=== PATIENT | female | born 1970 | race Caucasian/White ===

== ENCOUNTER 2017-07-28 12:37 | Observation (INO) | payer BC, OTHER ==
--- NOTE | 2017-07-28 13:00 | ER Document Report ---
ED Medical Screen (RME) - General Chief Complaint: Abdominal Pain Stated Complaint: ABDOMINAL PAIN Time Seen by Provider: 07/28/17 12:58 Mode of Arrival: Ambulatory Information source: Patient TRAVEL OUTSIDE OF THE [place] IN LAST 30 DAYS: No - HPI Patient complains to provider of: abd pain Onset: This morning - pt with onset of RLQ abd pain earlier this am - Related Data Allergies/Adverse Reactions: Sulfa (Sulfonamide Antibiotics) Adverse Reaction (Intermediate, Verified 12:41) Nausea Physical Exam - Vital signs Vitals: Temp Pulse Resp BP Pulse Ox 99.2 F 95 18 133/77 H 99 07/28/17 12:49 07/28/17 12:49 07/28/17 12:49 07/28/17 12:49 07/28/17 12:49 Course - Vital Signs Vital signs: Temp Pulse Resp BP Pulse Ox 99.2 F 95 18 133/77 H 99 07/28/17 12:49 07/28/17 12:49 07/28/17 12:49 07/28/17 12:49 07/28/17 12:49
[2017-07-28 13:38] LABS: ABSOLUTE LYMPHOCYTES (AUTO) 1.7 10^3/uL (0.5-4.7); ABSOLUTE MONOCYTES (AUTO) 1.7 10^3/uL (0.1-1.4); ABSOLUTE NEUT (AUTO) 16.1 10^3/uL (1.7-8.2); BASOPHILS % (AUTO) 0.1 % (0-2); HEMATOCRIT 41.4 % (36.0-47.0); HEMOGLOBIN 13.9 g/dL (12.0-15.5); LYMPHOCYTES % (AUTO) 8.7 % (13-45); MEAN CORPUSCULAR HEMOGLOBIN 29.4 pg (27.0-33.4); MEAN CORPUSCULAR HGB CONC 33.5 g/dL (32.0-36.0); MEAN CORPUSCULAR VOLUME 88 fl (80-97); MONOCYTES % (AUTO) 8.5 % (3-13); PLATELET COUNT 400 10^3/uL (150-450); RED BLOOD COUNT 4.71 10^6/uL (3.72-5.28); SEGMENTED NEUTROPHILS % (AUTO) 82.7 % (42-78); TOTAL CELLS COUNTED % (AUTO) 100 %; WHITE BLOOD COUNT 19.4 10^3/uL (4.0-10.5)
[2017-07-28 13:52] LABS: APPEARANCE,URINE CLEAR; BILIRUBIN,URINE NEGATIVE (NEGATIVE); COLOR,URINE YELLOW; GLUCOSE, URINE NEGATIVE (NEGATIVE); KETONES,URINE NEGATIVE (NEGATIVE); LEUKOCYTE ESTERASE,URINE NEGATIVE (NEGATIVE); NITRITE,URINE NEGATIVE (NEGATIVE); PROTEIN,URINE NEGATIVE (NEGATIVE); URINE SPECIFIC GRAVITY 1.023; UROBILINOGEN,URINE NEGATIVE mg/dL (<2.0)
--- NOTE | 2017-07-28 14:10 | RADIOLOGY REPORT (SQ) ---
EXAM DESCRIPTION: CT ABD/PELVIS WITH IV ONLY COMPLETED DATE/TIME: 07/28/2017 1:39 pm REASON FOR STUDY: RLQ pain COMPARISON: None. TECHNIQUE: CT scan of the abdomen and pelvis performed using helical scanning technique with dynamic intravenous contrast injection. No oral contrast. Images reviewed with lung, soft tissue, and bone windows. Reconstructed coronal and sagittal MPR images reviewed. Delayed images for evaluation of the urinary system also acquired. All images stored on PACS. All CT scanners at this facility use dose modulation, iterative reconstruction, and/or weight based d osing when appropriate to reduce radiation dose to as low as reasonably achievable (ALARA). [facility]: Dose Right [facility]: CareDose [facility]: Dose Right [facility]: Teradose 4D [facility]: WiFast CONTRAST TYPE AND DOSE: contrast/concentration: Isovue 370.00 mg/ml; Total Contrast Delivered: 69.0 ml; Total Saline Delivered: 65.0 ml RENAL FUNCTION: None required. The patient is less than 50 years old. RADIATION DOSE: CT Rad equipment meets quality standard of care and radiation dose reduction techniq ues were employed. CTDIvol: 5.0 - 5.8 mGy. DLP: 558 mGy-cm.. LIMITATIONS: None. FINDINGS: LOWER CHEST: 2 mm pulmonary nodule right lower lobe of doubtful clinical significance. Chanelle ng bases otherwise clear. LIVER: Normal size. No masses. No dilated ducts. SPLEEN: Normal size. No focal lesions. PANCREAS: No masses. No significant calcifications. No adjacent inflammation or peripancreatic fluid collections. Pancreatic duct not dilated. GALLBLADDER: No identified stones by CT criteria. No inflammatory changes to suggest cholecystitis. ADRENAL GLANDS: No significant masses or asymmetry. RIGHT KIDNEY AND URETER: No solid masses. No significant calcifications. No hydronephrosis or hyd roureter. LEFT KIDNEY AND URETER: No solid masses. No significant calcifications. No hydronephrosis or hydr oureter. AORTA AND VESSELS: No aneurysm. No dissection. Renal arteries, SMA, celiac without stenosis. RETROPERITONEUM: No retroperitoneal adenopathy, hemorrhage or masses. BOWEL AND PERITONEAL CAVITY: No masses or inflammatory changes. No free fluid or peritoneal masses. APPENDIX: Fluid distended appendix measuring 10 mm with fecalith at its base and mild surrounding inf lammation compatible with acute appendicitis. No abscess or free air. PELVIS: No mass. No free fluid. Normal bladder. ABDOMINAL WALL: No masses. Tiny fat containing periumbilical hernia. BONES: No significant or acute findings. OTHER: No other significant finding. IMPRESSION: ACUTE APPENDICITIS IN THE SETTING OF FECALITH. TECHNICAL DOCUMENTATION: JOB ID: [id number] Quality ID # [id number]: Final reports with documentation of one or more dose reduction techniques (e.g., Au tomated exposure control, adjustment of the mA and/or kV according to patient size, use of iterative reconstruction technique) 2010 [employer]- All Rights Reserved Reading location - IP/workstation name: [email or web address]
[2017-07-28 14:20] LABS: ALANINE AMINOTRANSFERASE 30 U/L (9-52); ALBUMIN 4.7 g/dL (3.5-5.0); ALKALINE PHOSPHATASE 69 U/L (38-126); ANION GAP 12 (5-19); ASPARTATE AMINO TRANSFERASE 15 U/L (14-36); BILIRUBIN,DIRECT 0.1 mg/dL (0.0-0.4); BILIRUBIN,TOTAL 0.5 mg/dL (0.2-1.3); BLOOD UREA NITROGEN 11 mg/dL (7-20); CALCIUM 9.9 mg/dL (8.4-10.2); CARBON DIOXIDE 26 mmol/L (22-30); CHLORIDE 100 mmol/L (98-107); GLUCOSE 116 mg/dL (75-110); SODIUM 137.6 mmol/L (137-145); TOTAL PROTEIN 7.4 g/dL (6.3-8.2)
[2017-07-28] MEDS ORDERED: ONDANSETRON HCL INJ/PF 4 MG/2 ML SDV IV ONE (14:31)
[2017-07-28] MEDS ORDERED: ERTAPENEM SODIUM INJ 1 GM VIAL IV ONE (14:31)
[2017-07-28] MEDS ORDERED: HYDROMORPHONE HCL INJ/PF 2 MG/ML AMPULE IV ONE (14:31)
[2017-07-28] MEDS ORDERED: NORMAL SALINE 1000 ML 1,000 ML IV ONE (14:32)
--- NOTE | 2017-07-28 14:43 | ER Document Report ---
ED General - General Chief Complaint: Abdominal Pain Stated Complaint: ABDOMINAL PAIN Time Seen by Provider: 07/28/17 12:58 Mode of Arrival: Ambulatory Notes: 39-year-old female with no medical problems presents with 8 hours of right lower quadrant pain radiating from the epigastric/umbilical area worsening throughout the day with anorexia and nausea. Patient was evaluated in triage. She had labs showing leukocytosis, and before I evaluated her she had a CT that shows acute appendicitis. TRAVEL OUTSIDE OF THE [place] IN LAST 30 DAYS: No - Related Data Allergies/Adverse Reactions: Sulfa (Sulfonamide Antibiotics) Adverse Reaction (Intermediate, Verified 13:00) Nausea Past Medical History - General Information source: Patient - Social History Smoking Status: Never Smoker Chew tobacco use (# tins/day): No Frequency of alcohol use: None Drug Abuse: None Family History: None Patient has suicidal ideation: No Patient has homicidal ideation: No Renal/ Medical History: Denies: Hx Peritoneal Dialysis Review of Systems - Review of Systems Notes: REVIEW OF SYSTEMS GEN: Denies fever, chills, weight loss ENT: Denies sore throat, nasal discharge, ear pain EYES: Denies blurry vision, eye pain, discharge CV: Denies chest pain, palpitations, edema RESP: Denies cough, shortness of breath, wheezing GI: Pain anorexia MSK: Denies joint pain/swelling, edema, SKIN: Denies rash, skin lesions LYMPH: Denies swollen glands/lymph nodes NEURO: Denies headache, focal weakness or numbness, dizziness PSYCH: Denies depression, suicidal or homicidal ideation PHYSICAL EXAMINATION General: No acute distress, well-nourished Head: Atraumatic, normocephalic ENT: Mouth normal, oropharynx moist, no exudates or tonsillar enlargement Eyes: Conjunctiva normal, pupils equal, lids normal Neck: No JVD, supple, no guarding CVS: Normal rate, regular rhythm, no murmurs Resp: No resp distress, equal and normal breath sounds bilaterally GI: Nondistended, soft, right lower quadrant tenderness with mild guarding no rebound Ext: No deformities, no edema, normal range of motion in upper and lower ext Back: No CVA or midline TTP Skin: No rash, warm Lymphatic: No lymphadeopathy noted Neuro: Awake, alert. Face symmetric. GCS 15. Physical Exam - Vital signs Vitals: Temp Pulse Resp BP Pulse Ox 99.2 F 95 18 133/77 H 99 07/28/17 12:49 07/28/17 12:49 07/28/17 12:49 07/28/17 12:49 07/28/17 12:49 Course - Re-evaluation Re-evalutation: 07/28/17 14:43 Acute abdominal pain for several hours with tenderness. Labs showed leukocytosis, CT was ordered and shows appendicitis. Patient was given Dilaudid Zofran and fluids by me, added Invanz for antibiotic coverage. Spoke with Dr. Person at 2:40 PM who will admit the patient for surgery. - Vital Signs Vital signs: Temp Pulse Resp BP Pulse Ox 99.2 F 95 18 133/77 H 99 07/28/17 12:49 07/28/17 12:49 07/28/17 12:49 07/28/17 12:49 07/28/17 12:49 - Laboratory Result Diagrams: 07/28/17 12:22 07/28/17 12:22 Laboratory results interpreted by me: 07/28/17 07/28/17 07/28/17 12:22 12:22 13:34 WBC 19.4 H Seg Neutrophils % 82.7 H Lymphocytes % 8.7 L Absolute Neutrophils 16.1 H Absolute Monocytes 1.7 H Glucose 116 H Urine Blood SMALL H - Diagnostic Test Radiology reviewed: Image reviewed, Reports reviewed Discharge - Discharge Clinical Impression: Acute appendicitis Qualifiers: Acute appendicitis type: with localized peritonitis Qualified Code(s): K35.3 - Acute appendicitis with localized peritonitis Condition: Fair Disposition: ADMITTED INPATIENT Admitting Provider: Surgicalist Unit Admitted: OR
[2017-07-28] MEDS ORDERED: GLYCOPYRROLATE INJ 0.4 MG/2 ML VIAL ONE (14:56)
[2017-07-28] MEDS ORDERED: DEXAMETHASONE SOD PHOSPHATE INJ 4 MG/1 ML VIAL ONE (14:56)
[2017-07-28] MEDS ORDERED: ROCURONIUM BROMIDE INJ 50 MG/5 ML VIAL IV ONE (14:56)
[2017-07-28] MEDS ORDERED: ONDANSETRON HCL INJ/PF 4 MG/2 ML SDV ONE (14:56)
[2017-07-28] MEDS ORDERED: NEOSTIGMINE METHYLSULFATE 10 MG/10 ML VIAL ONE (14:56)
[2017-07-28] MEDS ORDERED: SUCCINYLCHOLINE CHLORIDE INJ 200 MG/10 ML VIAL ONE (14:56)
[2017-07-28] MEDS ORDERED: LIDOCAINE 2% INJ-PF (20 MG/ML) 2 ML AMPUL ONE (14:56)
--- NOTE | 2017-07-28 15:33 | PDOC H&P ---
History of Present Illness Admission Date/PCP: 07/28/17 14:47 Patient complains of: Abdominal pain History of Present Illness: GREGORY CARTY is a 47 year old female Patient is a 7-year-old white female [facility] living in [facility] visiting her family [facility] presents to the emergency department planing acute onset abdominal pain periumbilical radiating to the right lower quadrant associated with anorexia but no nausea or vomiting. She was seen in the emergency department where she was found to have right lower quadrant tenderness, with guarding. She had a leukocytosis of 19,[address] scan obtained of the abdomen and pelvis without oral contrast which showed findings consistent with acute appendicitis. Surgery was consulted and she was advised admission for definitive surgical management Past Medical History Past Medical History: Consist of gastroenteritis, status post EGD and colonoscopy 2015 with no pathologic findings. My: History of benign breast biopsy both breasts, benign findings. Past Surgical History Past Surgical History: Reports: Other - As above benign breast biopsy Social History Smoking Status: Never Smoker Hx Recreational Drug Use: No Hx Prescription Drug Abuse: No Family History Family History: None Parental Family History Reviewed: Yes Children Family History Reviewed: Yes Sibling(s) Family History Reviewed.: Yes Medication/Allergy Home Medications: Ergocalciferol (Vitamin D2) [Vitamin D] 2,000 unit PO Q7D 07/28/17 Estradiol 1 each TD DAILY 07/28/17 Progesterone, Micronized [Progesterone] 300 mg PO QHS 07/28/17 Sertraline HCl [Zoloft] 150 mg PO QHS 07/28/17 Allergies/Adverse Reactions: Sulfa (Sulfonamide Antibiotics) Adverse Reaction (Intermediate, Verified 13:00) Nausea Review of Systems Constitutional: PRESENT: as per HPI Eyes: ABSENT: visual disturbances Ears: ABSENT: hearing changes Respiratory: ABSENT: cough, hemoptysis Gastrointestinal: PRESENT: as per HPI Genitourinary: ABSENT: dysuria, hematuria Musculoskeletal: ABSENT: joint swelling Integumentary: ABSENT: rash, wounds Neurological: ABSENT: abnormal gait, abnormal speech, confusion, dizziness, focal weakness, syncope Physical Exam Vital Signs: Temp Pulse Resp BP Pulse Ox 99.2 F 95 18 133/77 H 99 07/28/17 12:49 07/28/17 12:49 07/28/17 12:49 07/28/17 12:49 07/28/17 12:49 General appearance: PRESENT: mild distress Head exam: PRESENT: normocephalic Eye exam: PRESENT: EOMI Ear exam: PRESENT: normal external ear exam Mouth exam: PRESENT: dry mucosa Neck exam: PRESENT: full ROM Respiratory exam: PRESENT: clear to auscultation kimi Cardiovascular exam: PRESENT: RRR Pulses: PRESENT: normal carotid pulses, normal radial pulses, normal dorsalis pedis pul GI/Abdominal exam: PRESENT: other - Tender right lower quadrant; small umbilical hernia; no distention; no groin hernias Neurological exam: PRESENT: awake, oriented to person, oriented to place Psychiatric exam: PRESENT: anxious Skin exam: PRESENT: dry Results Impressions: Abdomen/Pelvis CT 07/28/17 12:59 IMPRESSION: ACUTE APPENDICITIS IN THE SETTING OF FECALITH. Assessment & Plan - Diagnosis (1) Acute appendicitis Qualifiers: Acute appendicitis type: with localized peritonitis Qualified Code(s): K35.3 - Acute appendicitis with localized peritonitis Is this a current diagnosis for this admission?: Yes Plan: Patient's clinical radiographic and laboratory findings consistent with acute appendicitis without rupture. Recommendations: 1 admit to surgical service keep n.p.o. on IV fluids intravenous antibiotics 2. We will proceed with laparoscopic, possible open appendectomy, 1 hour, [facility], general anesthesia, possible drain. The mechanics of the operation as well as an explanation of risks benefits alternatives were reviewed with the patient including bleeding, infection, need for additional surgery, postoperative pain, postoperative wound problems. She expressed understanding and agrees to proceed. (2) Umbilical hernia Is this a current diagnosis for this admission?: Yes (3) History of gastritis Is this a current diagnosis for this admission?: No - Time Time Spent: 50 to 70 Minutes Critical Time spent with patient: 15-24 minutes Medications reviewed and adjusted accordingly: Yes Anticipated discharge: Home - Inpatient Certification Based on my medical assessment, after consideration of the patient's comorbidities, presenting symptoms, or acuity I expect that the services needed warrant INPATIENT care.: Yes I certify that my determination is in accordance with my understanding of Medicare's requirements for reasonable and necessary INPATIENT services [42 CFR 412.3e].: Yes Medical Necessity: Need For IV Fluids, Need for IV Antibiotics, Need for Surgery
[2017-07-28] MEDS ORDERED: RINGERS SOLUTION,LACTATED 1,000 ML IV PRN ×2 (15:35→18:06)
[2017-07-28] MEDS ORDERED: FENTANYL CITRATE INJ/PF 250 MCG/5 ML AMPULE ONE (16:27)
[2017-07-28] MEDS ORDERED: ACETAMINOPHEN 100 ML IV ONE (16:28)
[2017-07-28] MEDS ORDERED: PROPOFOL INJ 200 MG/20 ML VIAL IV ONE (16:28)
[2017-07-28] MEDS ORDERED: MIDAZOLAM 2 MG/2 ML INJ ONE (16:28)
[2017-07-28] MEDS ORDERED: BUPIVACAINE HCL 0.25 % INJ/PF (2.5 MG/1 ML) 30 ML VIAL ONE (16:34)
[2017-07-28] MEDS ORDERED: FENTANYL CITRATE INJ/PF 100 MCG/2 ML AMPUL IV PRN ×3 (17:04)
[2017-07-28] MEDS ORDERED: DIPHENHYDRAMINE HCL 50 MG/ML VIAL IV PRN (17:04)
[2017-07-28] MEDS ORDERED: PROMETHAZINE HCL INJ 25 MG/1 ML VIAL IV PRN (17:04)
[2017-07-28] MEDS ORDERED: MEPERIDINE HCL/PF INJ 25 MG/1 ML DISP.SYRIN IV PRN (17:04)
[2017-07-28] MEDS ORDERED: KETOROLAC TROMETHAMINE INJ/PF 30 MG/1 ML SDV IV PRN (18:05)
[2017-07-28] MEDS ORDERED: ONDANSETRON HCL INJ/PF 4 MG/2 ML SDV IV PRN (18:05)
[2017-07-28] MEDS ORDERED: KETOROLAC TROMETHAMINE 10 MG TABLET PO PRN (18:05)
--- NOTE | 2017-07-28 18:12 | Operative Report ---
Operative Report DATE OF SURGERY: 07/28/17 PREOPERATIVE DIAGNOSIS: Umbilical hernia and acute appendicitis POSTOPERATIVE DIAGNOSIS: Same OPERATION: 1. Laparoscopic appendectomy. 2. Laparoscopic closure of umbilical hernia SURGEON: LICO SCHERER ANESTHESIA: GA TISSUE REMOVED OR ALTERED: 1 appendix; umbilical fat COMPLICATIONS: None ESTIMATED BLOOD LOSS: Scant INTRAOPERATIVE FINDINGS: See below PROCEDURE: Patient was taken from the emergency department to the holding area and into the main operating room where general anesthesia was induced. Arms were abducted, abdomen exposed, hair clipped, the abdomen prepped and draped sterile fashion. Surgical plan surgical timeout were conducted. The findings are significant for known chronic small umbilical hernia. Skin was anesthetized at the umbilicus, suprapubic area and left lower quadrant for planned 3 port appendectomy. A small vertically oriented incision was made from the center of the umbilicus to the 6 o'clock position. Subcutaneous tissue was spread, and using hemostats, the subcutaneous fat and small piece of incarcerated umbilical fat likely originating from the omentum was dissected free. Some of the fat was debrided and disposed of. We now had a small fascial defect approximately 1 cm right at the center of the umbilicus which was used to introduce a non-bladed 5 mm port. The peritoneum was established and a 5 mm flexible scope was inserted. Findings are significant for no bleeding from the abdomen and no evidence of visceral injury. Under direct visualization 2 additional ports were placed one 5 mm above the pubic area and one 12 mm left lower quadrant Findings are significant for purulent discharge in the pelvis and acutely inflamed but nonruptured appendix lying adjacent to the ileocecal junction. Using a combination of blunt and electrocautery dissection, the appendix was freed from the terminal ileum, and allowed to be retracted up into the free peritoneal space. We got around the base the appendix easily with a scopic dissector, then brought onto the field a 45 mm Endo stapler, blue load. This was deployed by stapling across the base the appendix thereby amputating the appendix from the cecum. We now had the appendix suspended from the mesial appendix. This was amputated in a second firing of the 45 mm stapler, white load. The appendix was now free photographed and placed in Endobag and brought to the patient to the left lower quadrant port site. We returned the peritoneal cavity checked for bleeding there was none. Localized irrigation performed of the pelvis such that all purulent discharge was evacuated We now removed the 5 mm port the umbilicus, and exchange the 12 mm for a 5 mm port. We now closed the fascial defect at the umbilicus with a 0 Vicryl suture using the disposable suture passer in a [id number] fashion. At this point we felt the operation was complete. Sponge and needle counts correct. All other ports removed under direct visualization, pneumoperitoneum evacuated and skin incisions closed with 3-0 Vicryl suture benzoin and Steri- Strips. Additional Marcaine injected into the subcutaneous tissues. Patient tolerated the procedure well, extubated taken to recovery room in stable condition.
[2017-07-28] MEDS ORDERED: PIPERACILLIN/TAZOBACTAM 3.375 GM VIAL IV PRN (18:13)
[2017-07-28] MEDS ORDERED: PIPERACILLIN/TAZOBACTAM 3.375 GM VIAL IV ONE (22:32)
[2017-07-28] MEDS: PIPERACILLIN SODIUM/TAZOBACTAM 3.375 GM in NORMAL SALINE 100 ML IV SCH (23:19)
[2017-07-29] MEDS ORDERED: PIPERACILLIN/TAZOBACTAM 3.375 GM VIAL IV ONE (06:54)
[2017-07-29] MEDS: PIPERACILLIN SODIUM/TAZOBACTAM 3.375 GM in NORMAL SALINE 100 ML IV SCH (07:23)
[2017-07-29 10:41] VITALS: BP 110/66
[2017-07-29] MEDS ORDERED: PIPERACILLIN SODIUM/TAZOBACTAM 3.375 GM in NORMAL SALINE 100 ML IV ONE (14:00)
[2017-07-29] MEDS ORDERED: PIPERACILLIN SODIUM/TAZOBACTAM 3.375 GM in NORMAL SALINE 100 ML IV SCH (14:00)
--- NOTE | 2017-07-29 16:34 | DISCHARGE SUMMARY E ---
Discharge Summary NAME: GREGORY CARTY : 1970 AGE: 47Y ADMITTED: 07/28/2017 DISCHARGED: 07/29/2017 REASON FOR ADMISSION: Acute abdominal pain. SUMMARY OF HOSPITALIZATION: Patient is a 47-year-old white female with acute onset abdominal pain, nausea and anorexia. She was seen in the emergency department where she was found to have right lower quadrant tenderness and leukocytosis. A CT scan of the abdomen and pelvis was performed which showed findings consistent with acute appendicitis. Surgery was consulted. She was advised admission and definitive care. The patient was taken to the operating by Dr. Person on the afternoon of 07/28/2017 where she underwent laparoscopic appendectomy. She was found to have acute suppurative appendicitis without perforation. She also had a small umbilical hernia which was closed primarily without mesh. Please see operative note. Postoperatively, the patient did well, had no complications. Was started on a diet and adequate pain control. By the following morning was ready for discharge to home. FINAL DIAGNOSIS: 1. ACUTE APPENDICITIS STATUS POST LAPAROSCOPIC APPENDECTOMY, DR. PERSON. 2. UMBILICAL HERNIA, CURRENT, REPAIR BY DR. PERSON. DISPOSITION: Patient was discharged to home in the care of her family. Followup with [facility] in 1 week. Shower. Take Tylenol emergent p.r.n. pain and resume her preoperative medications and be on a limited activity status. DICTATING PHYSICIAN: LICO PERSON M.D. [id number] PHY#: [id number] ID: [id number] JOB#: [id number] ACCT: [id number] cc:LICO PERSON M.D. >
== END 2017-07-29 10:55 | disposition home or self-care (01) ==
LOC: ER 12:37 → EH 14:47 → INTOOBSV 14:47 → 2N 19:09
PROVIDERS: ADMIT Surgery; ATTEND Surgery
PROC: 0WQF4ZZ Repair Abdominal Wall, Percutaneous Endoscopic Approach (ICD-10-PCS; 2017-07-28)
PROC: 0DTJ4ZZ Resection of Appendix, Percutaneous Endoscopic Approach (ICD-10-PCS; principal; 2017-07-28 17:00)
DX: K35.80 Unspecified acute appendicitis (principal); K42.0 Umbilical hernia with obstruction, without gangrene; Z87.19 Personal history of other diseases of the digestive system
CPT/HCPCS: 99285; 36415; 85025; 81025; 80053; 81001; 88304 ×2; 74177; 44970; 49653; J2250; J3490 ×2; J1100; J3010; J1335; J1885; J1170; J0330; J2405; J7030; J2704; J2543 ×2; J0131; 840; G0378